=== PATIENT | female | born 1985 | race Two or more races ===

== ENCOUNTER 2020-02-18 05:12 | Emergency (ER) | payer SELFPAY ==
[~2020-02-18] VITALS: Ht 167.6 cm; Wt 78.0 kg
[2020-02-18] MEDS ORDERED: ONDANSETRON 2MG/ML, 2ML IVPush ONE (05:30)
[2020-02-18] MEDS ORDERED: SODIUM CHLORIDE 0.9% 1,000ML IVBOLUS ONE (05:30)
[2020-02-18] MEDS ORDERED: ONDANSETRON 2MG/ML, 2ML ONE (05:36)
[2020-02-18] MEDS ORDERED: MORPHINE SULFATE 4 MG/ML, 1ML ONE ×2 (05:36→06:40)
[2020-02-18] MEDS: MORPHINE SULFATE 4 MG/ML, 1ML IVPush PRN ×2 (05:39→06:43)
--- NOTE | 2020-02-18 05:57 | NUR ---
IV established. Meds admin per jun.
[2020-02-18 05:59] LABS: BASOPHILS % (AUTO) 0 % (0-1); EOSINOPHILS % (AUTO) 2 % (1-7); LYMPHOCYTES % (AUTO) 36 % (22-44); MEAN CORPUSCULAR HEMOGLOBIN 28.4 pg (27.0-34.8); MEAN CORPUSCULAR HGB CONC 32.6 g/dL (32.4-35.8); MEAN PLATELET VOLUME 7.9 fL (7.4-10.4); MONOCYTES % (AUTO) 4 % (2-9); NEUTROPHILS % (AUTO) 59 % (42-75); PLATELET COUNT 297 x10^3/uL (130-400); RED BLOOD COUNT 4.76 x10^6/uL (3.82-5.3); RED CELL DISTRIBUTION WIDTH 13.3 % (9.6-15.2)
[2020-02-18] MEDS ORDERED: PLEASE ENTER ALLERGIES MC SCH (06:00)
[2020-02-18 06:01] LABS: MICROSCOPIC AUTO
[2020-02-18 06:03] LABS: ALANINE AMINOTRANSFERASE 22 U/L (12-78); ALBUMIN 3.9 g/dL (3.4-5.0); ANION GAP 5 mmol/L (5-15); CALCIUM 9.5 mg/dL (8.5-10.1); CHLORIDE 107 mmol/L (98-107)
[2020-02-18 06:06] LABS: ALKALINE PHOSPHATASE 172 U/L (45-117); BILIRUBIN,TOTAL 0.7 mg/dL (0.2-1.0); CREATININE 0.68 mg/dL (0.55-1.02); MD NO; TOTAL PROTEIN 8.4 g/dL (6.4-8.2)
--- NOTE | 2020-02-18 06:43 | NUR ---
Patient c/o pain 09/22. Admin second dose of meds per mar.
--- NOTE | 2020-02-18 06:44 | NUR ---
Awaiting CT results.
[2020-02-18 07:53] VITALS: BP 118/78
== END 2020-02-18 07:55 | disposition home or self-care (01) ==
LOC: ED 06:22
DX: N30.00 Acute cystitis without hematuria (principal); M54.9 Dorsalgia, unspecified
CPT/HCPCS: 36415; 74176; 80053; 81001; 83690; 85025; 87086; 96374; 96375; 96376; 99284; J2270; J2405; J7030